=== PATIENT | female | born 1940 | race African-American/Black ===

== ENCOUNTER 2016-10-26 19:07 | Emergency (ER) | payer OTHER ==
[2016-10-26 20:12] LABS: BASOPHIL % 0.9 % (0-2); PLATELET COUNT 184 x10^3mcL (130-400)
[2016-10-26 20:17] LABS: CALCIUM 8.8 mg/dL (8.5-10.1); CARBON DIOXIDE 26.1 mmol/L (21-32); CHLORIDE SERUM 100 mmol/L (98-107); CREATININE SERUM 1.1 mg/dL (0.6-1.0); GLUCOSE SERUM 124 mg/dL (74-106); POTASSIUM SERUM 3.6 mmol/L (3.5-5.1); SODIUM SERUM 137 mmol/L (136-145)
[2016-10-26 20:21] LABS: ALBUMIN 3.5 g/dL (3.4-5.0); ALKALINE PHOSPHATASE 221 U/L (46-116); ALT/SGPT 21 U/L (14-59); AST/SGOT 15 U/L (15-37); BILIRUBIN TOTAL 0.3 mg/dL (0.20-1.00); TOTAL PROTEIN, SERUM 8.2 g/dL (6.4-8.2)
[2016-10-26 20:34] LABS: microscopic required? NO
[2016-10-26 20:35] LABS: RED CELL DISTRIBUTION WIDTH 15.9 % (11.5-14.5)
[2016-10-26 20:36] LABS: rbc morphology (normal/abnorm) ABNORMAL (NORMAL)
[2016-10-26 20:42] LABS: urine erythrocyte NEGATIVE (NEGATIVE)
[2016-10-26 21:32] VITALS: BP 159/93
== END 2016-10-26 21:55 | disposition home or self-care (01) ==
LOC: ED 19:07
PROVIDERS: Emergency Medicine
DX: H00.016 Hordeolum externum left eye, unspecified eyelid (principal); I10 Essential (primary) hypertension; Z88.6 Allergy status to analgesic agent; Z88.8 Allergy status to other drugs, medicaments and biological substances; Z90.710 Acquired absence of both cervix and uterus
CPT/HCPCS: 83880; J1885; Q0092

== ENCOUNTER 2017-02-21 02:45 | Inpatient (IN) | payer OTHER ==
[~2017-02-21] VITALS: Ht 160 cm; Wt 124.8 kg
[2017-02-21 05:11] LABS: microscopic required? NO
[2017-02-21] MEDS ORDERED: AMLODIPINE BES2.5 M1 (05:27)
[2017-02-21] MEDS ORDERED: AZOR 10-20 MG1 EACH (05:29)
[2017-02-21 05:40] LABS: UA SPECIFIC GRAVITY 1.015 (1.005-1.035); urine erythrocyte NEGATIVE (NEGATIVE)
[2017-02-21 05:43] LABS: BASOPHIL % 0.6 % (0-2); PLATELET COUNT 186 x10^3mcL (130-400)
[2017-02-21] MEDS ORDERED: AZOR1 TAB PO (05:45)
[2017-02-21] MEDS ORDERED: MAXZIDE-251 TAB PO (05:45)
[2017-02-21 05:48] LABS: RED CELL DISTRIBUTION WIDTH 15.3 % (11.5-14.5)
[2017-02-21 05:53] LABS: CALCIUM 8.7 mg/dL (8.5-10.1); CARBON DIOXIDE 24.7 mmol/L (21-32); CHLORIDE SERUM 94 mmol/L (98-107); CREATININE SERUM 1.3 mg/dL (0.6-1.0); GLUCOSE SERUM 134 mg/dL (74-106); POTASSIUM SERUM 4.4 mmol/L (3.5-5.1); SODIUM SERUM 128 mmol/L (136-145)
[2017-02-21 05:58] LABS: ALKALINE PHOSPHATASE 164 U/L (46-116); ALT/SGPT 18 U/L (14-59); AST/SGOT 19 U/L (15-37); BILIRUBIN TOTAL 0.39 mg/dL (0.20-1.00)
[2017-02-21 06:03] LABS: ALBUMIN 3.3 g/dL (3.4-5.0); TOTAL PROTEIN, SERUM 8.5 g/dL (6.4-8.2)
[2017-02-21 06:11] LABS: CK-MB 0.9 ng/mL (0-3.6)
[2017-02-21 07:27] VITALS: BP 124/64
[2017-02-21 08:18] LABS: CHOLESTEROL/HDL RATIO 2.5; MAGNESIUM 2.5 mg/dL (1.8-2.4); PHOSPHOROUS 3.3 mg/dL (2.5-4.9)
[2017-02-21 08:25] LABS: FREE T4 1.35 ng/dL (0.76-1.46); FREE THYROXINE INDEX 3.2 ug/dL (1.4-4.5); T4(THYROXINE) 8.9 ug/dL (4.7-13.3)
[2017-02-21 09:33] LABS: T3 TOTAL 1.04 ng/mL
[2017-02-21 10:00] VITALS: BP 130/67
[2017-02-21 14:27] VITALS: BP 105/70
[2017-02-21 17:31] VITALS: BP 160/67
[2017-02-21 21:22] VITALS: BP 130/69
[2017-02-21 22:28] LABS: AMPHETAMINE QUAL UR NONE DETECTED (NEG <=1000)
[2017-02-22 05:36] VITALS: BP 125/57
[2017-02-22 07:18] LABS: BASOPHIL % 1.7 % (0-2); PLATELET COUNT 181 x10^3mcL (130-400)
[2017-02-22 07:53] LABS: CALCIUM 8.5 mg/dL (8.5-10.1); CARBON DIOXIDE 26.3 mmol/L (21-32); CHLORIDE SERUM 100 mmol/L (98-107); CREATININE SERUM 1.1 mg/dL (0.6-1.0); GLUCOSE SERUM 112 mg/dL (74-106); MAGNESIUM 2.7 mg/dL (1.8-2.4); PHOSPHOROUS 4.2 mg/dL (2.5-4.9); POTASSIUM SERUM 5.2 mmol/L (3.5-5.1); SODIUM SERUM 134 mmol/L (136-145)
[2017-02-22 08:30] VITALS: BP 151/75
[2017-02-22 13:04] VITALS: BP 145/69
[2017-02-22 17:00] VITALS: BP 147/78
[2017-02-22 22:35] VITALS: BP 137/70
[2017-02-23 06:25] LABS: CALCIUM 8.5 mg/dL (8.5-10.1); CARBON DIOXIDE 24.4 mmol/L (21-32); CHLORIDE SERUM 105 mmol/L (98-107); CREATININE SERUM 1.1 mg/dL (0.6-1.0); GLUCOSE SERUM 102 mg/dL (74-106); MAGNESIUM 2.4 mg/dL (1.8-2.4); PHOSPHOROUS 4.5 mg/dL (2.5-4.9); POTASSIUM SERUM 4.6 mmol/L (3.5-5.1); SODIUM SERUM 136 mmol/L (136-145)
[2017-02-23 06:36] VITALS: BP 145/82
[2017-02-23 06:43] LABS: BASOPHIL % 0.5 % (0-2); PLATELET COUNT 191 x10^3mcL (130-400)
[2017-02-23 06:44] LABS: RED CELL DISTRIBUTION WIDTH 15.5 % (11.5-14.5)
[2017-02-23 06:47] LABS: rbc morphology (normal/abnorm) ABNORMAL (NORMAL)
[2017-02-23 10:06] VITALS: BP 121/62
[2017-02-23] MEDS ORDERED: HIBICLENS118 ML TOP (15:05)
[2017-02-23] MEDS ORDERED: LAC PO (15:06)
[2017-02-23] MEDS ORDERED: LEVAQUIN750 MG PO (15:07)
[2017-02-23] MEDS ORDERED: CLINDAMYCIN HC300 MG PO (15:08)
[2017-02-23] MEDS ORDERED: BACO TOP (15:12)
[2017-02-23] MEDS ORDERED: FER300 PO (15:17)
[2017-02-23 15:25] VITALS: BP 133/69
[2017-02-23 17:28] VITALS: BP 133/69
[2017-02-25 12:53] VITALS: Ht 160 cm; Wt 124.8 kg
== END 2017-02-23 17:49 | disposition home or self-care (01) | DRG 177 ==
LOC: ED 02:45 → DU 04:51
PROVIDERS: Emergency Medicine; Student in an Organized Health Care Education/Training Program
DX: J69.0 Pneumonitis due to inhalation of food and vomit (principal); N17.0 Acute kidney failure with tubular necrosis; E87.1 Hypo-osmolality and hyponatremia; Z68.42 Body mass index [BMI] 45.0-49.9, adult; E11.65 Type 2 diabetes mellitus with hyperglycemia; D50.9 Iron deficiency anemia, unspecified; E66.01 Morbid (severe) obesity due to excess calories; I10 Essential (primary) hypertension; E87.5 Hyperkalemia; E04.1 Nontoxic single thyroid nodule; N28.1 Cyst of kidney, acquired; K76.0 Fatty (change of) liver, not elsewhere classified; Z22.322 Carrier or suspected carrier of Methicillin resistant Staphylococcus aureus
CPT/HCPCS: 82962; 83880; 84439; 87804; J0456; J0696; J1956; J3490; J7030; J7050; J7620; Q0092

== ENCOUNTER 2018-08-24 08:10 | Inpatient (IN) | payer OTHER ==
[~2018-08-24] VITALS: Ht 160 cm; Wt 123.4 kg
[~2018-08-24 08:10] MED LIST: AMLODIPINE BES2.5 M1; AZOR 10-20 MG1 EACH; AZOR1 TAB PO; BACO TOP; CLINDAMYCIN HC300 MG PO; FER300 PO; HIBICLENS118 ML TOP; LAC PO; LEVAQUIN750 MG PO; MAXZIDE-251 TAB PO
[2018-08-24 08:23] VITALS: Ht 160 cm; Wt 123.4 kg
--- NOTE | 2018-08-24 08:45 | NUR ---
RECEIVED PATIENT FROM TRIAGE, PATIENT AMBULATED WITH WALKER TO ROOM 7. PATIENT C/O SOB AND CHEST PAIN X FEW DAYS NOW, STATES "MY CHEST ONLY HURTS WHEN I COUGH." PATIENT IS AA0 X 4 (NAME, DATE, CONDITION AND LOCATION). EYES - FRENANDO. MUCUS - PINK. SR ON MONITOR, HR = 91. LUNGS - DIMINISHED ON ALL LOBES. BS PRESENT X 4 QUADRANTS. B/L UPPER AND LOWER EXT PULSES PALPABLE. WILL CONTINUE TO MONITOR.//MAY RN
[2018-08-24 09:16] LABS: BASOPHIL % 0.2 % (0-2)
[2018-08-24 09:49] LABS: PLATELET COUNT 108 x10^3mcL (130-400); RED CELL DISTRIBUTION WIDTH 15.4 % (11.5-14.5)
--- NOTE | 2018-08-24 09:49 | NUR ---
RECEIVED CRITICAL LAB VALUE FROM LAB: LACTIC ACID = 3.8. DR RAY MADE AWARE AT THIS TIME.//MAY RN
[2018-08-24 10:06] LABS: ALBUMIN 3.7 g/dL (3.4-5.0); ALKALINE PHOSPHATASE 145 U/L (46-116); ALT/SGPT 26 U/L (14-59); AST/SGOT 26 U/L (15-37); BILIRUBIN TOTAL 0.6 mg/dL (0.20-1.00); CALCIUM 8.8 mg/dL (8.5-10.1); CARBON DIOXIDE 26.1 mmol/L (21-32); CHLORIDE SERUM 96 mmol/L (98-107); CREATININE SERUM 1.3 mg/dL (0.6-1.0); GLUCOSE SERUM 110 mg/dL (74-106); LIPASE 161 IU/L (73-393); POTASSIUM SERUM 5.1 mmol/L (3.5-5.1); SODIUM SERUM 133 mmol/L (136-145); TOTAL PROTEIN, SERUM 7.5 g/dL (6.4-8.2)
[2018-08-24 10:28] LABS: microscopic required? NO
[2018-08-24 10:34] LABS: UA SPECIFIC GRAVITY <=1.005 (1.005-1.035); urine erythrocyte NEGATIVE (NEGATIVE)
--- NOTE | 2018-08-24 11:05 | NUR ---
PATIENT SLEEPING, BUT EASILY AROUSABLE.//APR RN
[2018-08-24] MEDS ORDERED: LASIX20 MG PO (11:34)
[2018-08-24] MEDS ORDERED: DYA PO (11:35)
--- NOTE | 2018-08-24 11:55 | NUR ---
REPORT GIVEN TO NIKUNJ URRUTIA FOR ROOM 254-B. PATIENT MADE AWARE OF TRANSFER TO ROOM. PATIENT VERBALIZED UNDERSTANDING, NO QUESTION AT THIS TIME//APR RN
--- NOTE | 2018-08-24 12:15 | NUR ---
PATIENT ARRIVED TO FLOOR VIA GURNEY. PATIENT AMBULATES WITH WALKER. A/OX4. DENIES CHEST PAIN, DIZZINESS, GRAY. STATES SHE HAS MILD ABDOMINAL PAIN, LAST BM YESTERDAY. ABDOMEN SOFT, NONTENDER. STATES SHE IS INCONTINENT. ON O2 VIA NC @ [address] LOZOYA IN TO SPEAK WITH PATIENT ABOUT PLAN OF CARE. INSTRUCTED PATIENT ON USE OF BED CONTROLS AND CALL LIGHT. PATIENT AGREES AND VERBALIZES UNDERSTANDING.
[2018-08-24 12:25] VITALS: BP 146/76
[2018-08-24 13:23] VITALS: BP 146/76
[2018-08-24 13:49] LABS: T3 TOTAL 0.97 ng/mL
[2018-08-24 13:56] LABS: CHOLESTEROL/HDL RATIO 2.7; MAGNESIUM 2.1 mg/dL (1.8-2.4); PHOSPHOROUS 3.3 mg/dL (2.5-4.9)
[2018-08-24 14:07] LABS: AMPHETAMINE QUAL UR NONE DETECTED (See below)
[2018-08-24 14:08] LABS: FREE T4 1.23 ng/dL (0.76-1.46); FREE THYROXINE INDEX 2.7 ug/dL (1.4-4.5); T4(THYROXINE) 8.3 ug/dL (4.7-13.3)
--- NOTE | 2018-08-24 14:31 | NUR ---
20G IV ACCESS INSERTED TO PATIENT RAC. PATIENT NOW READY FOR CT-ANGIO/PUL. EXPLAINED TO PATIENT PROCEDURE, PATIENT UNDERSTANDS. ESCORTED DOWNSTAIRS VIA WC FOR PROCEDURE.
--- NOTE | 2018-08-24 14:46 | NUR ---
PATIENT RETURNED TO FLOOR.
[2018-08-24 15:25] VITALS: BP 146/76
--- NOTE | 2018-08-24 18:44 | NUR ---
PATIENT SEATED UP TO BED. COMPLAINTS OF MILD HEADACHE. PRN TYLENOL 650 MG PO GIVEN. AFTER EATING DINNER TRAY, PATIENT STATES HER GRAY HAS SUBSIDED. WILL CONTINUE TO MONITOR AND ENDORSE TO ONCOMING SHIFT. CALL LIGHT IN REACH.
--- NOTE | 2018-08-24 20:00 | NUR ---
PT A/A/O X4. DENIES DIZZINESS AND HEADACHE. DIMINISHED BREATH SOUNDS NOTED MONIK LUNGS. BREATHING EVEN AND UNLABORED ON ROOM AIR, SPO2 96%. DENIES CHEST PAIN AND PRESSURE THUS FAR. BOWEL SOUNDS ACTIVE. NO C/O N/V AND ABD PAIN. PITTING EDEMA NOTED ON BLE. IV INTACT ON THE RAC INFUSING WITH NS AT 50 ML/HR AND SALINE LOCK NOTED ON THE LEFT HAND. MADE PT COMFORTABLE. PLACED CALL LIGHT WITH IN REACH. WILL CONTINUE TO MONITOR.
[2018-08-24 21:26] VITALS: BP 130/64
--- NOTE | 2018-08-25 00:58 | NUR ---
PT RESTING WITH EYES CLOSED. NO DISTRESS AND DISCOMFORT NOTED. WILL CONTINUE TO MONITOR.
[2018-08-25 06:00] VITALS: BP 148/67
--- NOTE | 2018-08-25 06:02 | NUR ---
PT QUIET AND SITTING ON THE EGDE OF THE BED. NO C/O CHEST PAIN AND SOB THUS FAR. MADE PT COMFORTABLE. WILL ENDORSE TO THE AM NURSE ACCORDINGLY.
[2018-08-25 06:25] LABS: BASOPHIL % 0.4 % (0-2); PLATELET COUNT 135 x10^3mcL (130-400); RED CELL DISTRIBUTION WIDTH 14.5 % (11.5-14.5)
[2018-08-25 06:32] LABS: CARBON DIOXIDE 26.5 mmol/L (21-32); CHLORIDE SERUM 104 mmol/L (98-107); CREATININE SERUM 1.2 mg/dL (0.6-1.0); GLUCOSE SERUM 117 mg/dL (74-106); POTASSIUM SERUM 4.4 mmol/L (3.5-5.1); SODIUM SERUM 140 mmol/L (136-145)
--- NOTE | 2018-08-25 07:01 | NUR ---
LACTIC ACID 2.7 ENDORSED TO HANNA CALVIN.
--- NOTE | 2018-08-25 07:30 | NUR ---
PT ENDORSE TO ME THIS MORNING, LAYING IN BED RESTING. AA/O X4. BREATHING EVEN AND UNLABORED, LUNGS DIM ON RA. NO ACUTE RESP DISTRESS OR SOB NOTED. TELE 28 SR NOTED, HR 81. DENIES ANY CP OR PRESSURE. BOWEL SOUNDS ACTIVE IN ALL FOUR QUADS, PER PT LAST BM 08/23 AND HAS A HARD TIME HAVING BM. VOIDS FREELY, INCONT AT TIMES. GEN WEAKNESS, WALKER AT BEDSIDE. IV TO THE RAC INTACT AND PATENT, HEPLOCKED. CALL LIGHT IN REACH. WILL CONTINUE TO MONITOR.
[2018-08-25 09:17] VITALS: BP 127/67
--- NOTE | 2018-08-25 11:25 | NUR ---
LAB CALLED LACTIC ACID 3.5 DR. ESCAMILLA MADE AWARE. WILL CONTINUE TO MONITOR.
[2018-08-25 12:05] VITALS: BP 116/62
--- NOTE | 2018-08-25 14:00 | NUR ---
1L BOLUS COMPLETE/ TOLERATED WELL, VS STABLE. WILL CONTINUE TO MONITOR. TOLERATED 100% OF LUNCH. DENIES ANY CP OR PRESSURE.
--- NOTE | 2018-08-25 18:29 | NUR ---
NO ACUTE CHANGES AT THIS TIME, NO ACUTE RESP DISTRESS OR SOB NOTED. DENIES ANY CP OR PRESSSURE. IV TO THE L HAND INTACT AND PATENT, IV TO THE RAC INTACT AND PATENT, INFUSING AT 150ML/HRM NO REDNESS OR SWELLING NOTED. WILL ENDORSE TO INCOMING RN.
[2018-08-25 19:12] VITALS: BP 130/69
--- NOTE | 2018-08-25 19:20 | NUR ---
RECEIVED PT FROM PREVIOUS SHIFT NURSE. PT AOX4, DENIES GRAY/DIZZINESS. MED SURG PT, DENIES CP/PRESSURE. DENIES SOB/DIFFICULTY BREATHING, ON RA. WALKER AT BEDSIDE. IV TO L. HAND AND RAC, INTACT AND PATENT. BED IN LOWEST POSITION. CALL LIGHT WITHIN REACH. WILL CONTINUE TO MONITOR.
--- NOTE | 2018-08-26 02:05 | NUR ---
PT RESTING IN BED. RR EVEN AND UNLABORED. IN NO ACUTE DISTRESS. CALL LIGHT WITHIN REACH. BED IN LOWEST POSITION. WILL CONTINUE TO MONITOR.
[2018-08-26 05:35] VITALS: BP 136/72
[2018-08-26 07:24] LABS: CALCIUM 8.6 mg/dL (8.5-10.1); CARBON DIOXIDE 26.2 mmol/L (21-32); CHLORIDE SERUM 106 mmol/L (98-107); CREATININE SERUM 1.1 mg/dL (0.6-1.0); GLUCOSE SERUM 110 mg/dL (74-106); SODIUM SERUM 142 mmol/L (136-145)
--- NOTE | 2018-08-26 07:30 | NUR ---
PT ENDORSE TO ME THIS MORNING, AA/O X4. BREATHING EVEN AND UNLABORED ON RA, NO ACUTE RESP DISTRESS OR SOB NOTED. MEDSURG, DENIES ANY CP OR PRESSURE. BOWEL SOUNDS ACTIVE IN ALL FOUR QUADS, BLE TRACE OF EDEMA NOTED. VOIDS FREELY/ INCONT AT TIMES. GEN WEAKNESS/AMB/ WALKER AT BEDSIDE. IV TO THE L HAND AND RAC INTACT AND PATENT, INFUSING AT 150ML/HR, NO REDNESS OR SWELLING NOTED. CALL LIGHT IN REACH. BED IN LOW POSITION. WILL CONTINUE TO MONITOR.
[2018-08-26 08:27] LABS: BASOPHIL % 1.5 % (0-2); PLATELET COUNT 147 x10^3mcL (130-400)
[2018-08-26 08:31] LABS: RED CELL DISTRIBUTION WIDTH 14.8 % (11.5-14.5)
[2018-08-26 09:11] VITALS: BP 120/50
[2018-08-26] MEDS ORDERED: LIPI20 PO (12:49)
[2018-08-26] MEDS ORDERED: METOPROLOL TART25 M1 PO (12:49)
--- NOTE | 2018-08-26 13:44 | NUR ---
PT TOLERATED 100% OF LUNCH, DENIES ANY N/V. DENIES ANY CP OR PRESSURE. WILL CONTINUE TO MONITOR.
[2018-08-26 15:33] VITALS: BP 120/50
--- NOTE | 2018-08-26 16:36 | NUR ---
EXPLAINED DISCHARGE INSTRUCTIONS, NEW AND CONTINUED MEDS AND FOLLOW UP APPT FOR 09/[address] GAYLE OFFICE. PT AGREED AND SIGNED ALL DC PAPER WORK. REMOVED IV TO L HAND AND RAC/CATHETER TIPS INTACT. TOLERATED WELL.
--- NOTE | 2018-08-26 17:10 | NUR ---
ZACH VIEIRA WHEELED PT DOWN TO FRONT OF HOSPITAL WHERE CAB RIDE IS WAITING. PT IS BREATHING EVEN AND UNLABORED ON RA/ NO ACUTE RESP DISTRESS OR SOB NOTED. DENIES ANY CP OR PRESSURE. PT DISCHARGE.
== END 2018-08-26 17:11 | disposition home or self-care (01) | DRG 205 ==
LOC: ED 08:10 → DU 11:25 → MU 11:25 → DU 12:12 → MU 08-25 13:22
PROVIDERS: Emergency Medicine; ADMIT Internal Medicine
DX: M94.0 Chondrocostal junction syndrome [Tietze] (principal); N17.0 Acute kidney failure with tubular necrosis; E87.2 Acidosis; Z68.42 Body mass index [BMI] 45.0-49.9, adult; E66.2 Morbid (severe) obesity with alveolar hypoventilation; E11.9 Type 2 diabetes mellitus without complications; R35.0 Frequency of micturition; R39.15 Urgency of urination; E86.0 Dehydration; I10 Essential (primary) hypertension; E78.5 Hyperlipidemia, unspecified; Z79.82 Long term (current) use of aspirin; Z79.84 Long term (current) use of oral hypoglycemic drugs; Z87.01 Personal history of pneumonia (recurrent)
CPT/HCPCS: 83880; 84439; 94150; G0378; J1644; J7030; J7620; Q0092; Q9967

== ENCOUNTER 2019-01-01 17:52 | Emergency (ER) | payer OTHER ==
[~2019-01-01] VITALS: Ht 160 cm; Wt 124.7 kg
[~2019-01-01 17:52] MED LIST changes: +DYA PO; +LASIX20 MG PO; +LIPI20 PO; +METOPROLOL TART25 M1 PO
[2019-01-01 18:02] VITALS: Ht 160 cm; Wt 124.7 kg
[2019-01-01 18:58] LABS: CALCIUM 9.2 mg/dL (8.5-10.1); CARBON DIOXIDE 28.7 mmol/L (21-32); CHLORIDE SERUM 100 mmol/L (98-107); CREATININE SERUM 1.2 mg/dL (0.6-1.0); GLUCOSE SERUM 104 mg/dL (74-106); POTASSIUM SERUM 3.8 mmol/L (3.5-5.1); SODIUM SERUM 139 mmol/L (136-145)
[2019-01-01 19:04] LABS: PLATELET COUNT 179 x10^3mcL (130-400)
[2019-01-01 19:08] LABS: BASOPHIL % 8.4 % (0-2); RED CELL DISTRIBUTION WIDTH 15.1 % (11.5-14.5)
[2019-01-01 19:25] LABS: microscopic required? NO
[2019-01-01 19:45] LABS: urine erythrocyte NEGATIVE (NEGATIVE)
[2019-01-01 20:32] VITALS: BP 135/72
== END 2019-01-01 20:32 | disposition home or self-care (01) ==
LOC: ED 17:52
PROVIDERS: Emergency Medicine
DX: R05 Cough (principal)
CPT/HCPCS: 36415; 83880; 87804; Q0092